=== PATIENT | male | born 1985 | race Caucasian/White ===

== ENCOUNTER 2017-02-13 13:26 | Emergency (ER) | payer BC ==
[~2017-02-13] VITALS: Ht 190.5 cm; Wt 114.7 kg
[2017-02-13 13:38] VITALS: TEMP 36.9; Ht 190.5 cm; Wt 114.7 kg
[2017-02-13] MEDS ORDERED: NICO1DIS7 TD (14:16)
[2017-02-13] MEDS ORDERED: PRED20TA2 PO (14:16)
--- NOTE | 2017-02-13 14:50 | DIAGNOSTIC IMAGING REPORT ---
SINGLE VIEW CHEST CLINICAL HISTORY: Generalized abdominal pain. FINDINGS: 2 AP, portable, upright chest radiographs are obtained. No prior studies are available for comparison at the time of dictation. The examination is degraded by portable technique and patient rotation. The cardiomediastinal silhouette is unremarkable. The lungs and pleural spaces are clear. No pneumothorax is seen. The bony thorax is grossly intact. IMPRESSION: No active disease in the chest. Electronically signed by: Rober Roe M.D. 02/13/2017 2:48 PM Dictated Date/Time: 02/13/2017 2:48 PM
--- NOTE | 2017-02-13 14:55 | EMERGENCY ROOM VISIT NOTE ---
History Report prepared by Rika: Ildefonso Du Under the Supervision of: Dr. Marcellus Hanna M.D. First contact with patient: 14:00 Chief Complaint: NECK PAIN Stated Complaint: NECK PAIN,DIZZINESS,SHOULDER PAIN,STOMACH PAIN History of Present Illness The patient is a 32 year old white male with a past medical history of low platelet counts and knee surgery who presents to the ED with a cc of constant dizziness beginning at 1100. He rates his discomfort as a 4/10 in severity. Positive neck pain, bilateral shoulder pain, abdominal pain. Negative recent falls, travel, tick bites, syncope, nausea, vomiting, gingival bleeding. The patient states that he was recently in the hospital for his symptoms because he thought he had Lyme's disease. He reports that they found he had a platelet count of 3000, which he had a transfusion for in [place]. The patient states that they did a bone marrow biopsy, but he still has not had the results. He states that they diagnosed him with ITP. The patient admits that he is a smoker and his last cigarette was four days ago. Source of History: patient Onset: 1100 Position: other (global) Symptom Intensity: 4/10 Timing: constant Associated Symptoms: + neck pain, + abdominal pain, No LOC, No nausea, No vomiting Review of Systems See HPI for pertinent positives and negatives. A total of ten systems were reviewed and were otherwise negative. Past Medical & Surgical Surgical Problems: (1) H/O knee surgery Family History Patient reports no known family medical history. Social History Smoking Status: Current Every Day Smoker Marital Status: Housing Status: lives with significant other Occupation Status: employed Current/Historical Medications Scheduled Nicotine (Nicotine Step 1), 21 MG TD DAILY Prednisone (Prednisone Tab), 80 MG PO DAILY Allergies Coded Allergies: No Known Allergies (Unverified , 02/13/17) Physical Exam Vital Signs Date Time Temp Pulse Resp B/P (MAP) Pulse Ox O2 Delivery O2 Flow Rate FiO2 02/13/17 16:05 80 20 158/81 100 Room Air 02/13/17 14:41 74 14 159/97 98 Room Air 02/13/17 14:32 77 02/13/17 13:38 36.9 93 18 166/75 98 Room Air Physical Exam GENERAL: Awake, alert, well-appearing, NAD HENT: Normocephalic, atraumatic, no gingival bleeding, no subconjunctival hemorrhage. EYES: Normal conjunctiva. Sclera non-icteric. NECK: Supple. No nuchal rigidity. FROM. RESPIRATORY: CTAB, no rhonchi, wheezing, crackles CARDIAC: RRR, no MRG ABDOMEN: Soft, NTND, BS+ MSK: No chest wall TTP, no LE edema NEURO: CN 2-12 intact, 5/5 upper and lower extremity strength, no dysmetria, no drift, good finger to nose, no sensory deficits. SKIN: Bruising to the right forearm, left upper arm, and bilateral shins. Nonblanching petechiae to the lower extremities. Medical Decision & Procedures ER Provider Diagnostic Interpretation: X-ray: Per my interpretation, radiologist review. SINGLE VIEW CHEST CLINICAL HISTORY: Generalized abdominal pain. FINDINGS: 2 AP, portable, upright chest radiographs are obtained. No prior studies are available for comparison at the time of dictation. The examination is degraded by portable technique and patient rotation. The cardiomediastinal silhouette is unremarkable. The lungs and pleural spaces are clear. No pneumothorax is seen. The bony thorax is grossly intact. IMPRESSION: No active disease in the chest. Electronically signed by: Rober Roe M.D. 02/13/2017 2:48 PM Dictated Date/Time: 02/13/2017 2:48 PM Laboratory Results 02/13/17 14:35 Red Blood Count 4.76, Mean Corpuscular Volume 87.6, Mean Corpuscular Hemoglobin 30.7, Mean Corpuscular Hemoglobin Concent 35.0, Mean Platelet Volume 9.3, Neutrophils (%) (Auto) 74.9, Lymphocytes (%) (Auto) 19.2, Monocytes (%) (Auto) 4.0, Eosinophils (%) (Auto) 0.0, Basophils (%) (Auto) 0.5, Neutrophils # (Auto) 7.06, Lymphocytes # (Auto) 1.81, Monocytes # (Auto) 0.38, Eosinophils # (Auto) 0.00, Basophils # (Auto) 0.05 02/13/17 14:35 Test 02/13/17 14:35 White Blood Count 9.43 K/uL (4.8-10.8) Red Blood Count 4.76 M/uL (4.7-6.1) Hemoglobin 14.6 g/dL (14.0-18.0) Hematocrit 41.7 % (42-52) Mean Corpuscular Volume 87.6 fL (80-100) Mean Corpuscular Hemoglobin 30.7 pg (25-34) Mean Corpuscular Hemoglobin Concent 35.0 g/dl (32-36) Platelet Count 133 K/uL (130-400) Mean Platelet Volume 9.3 fL (7.4-10.4) Neutrophils (%) (Auto) 74.9 % Lymphocytes (%) (Auto) 19.2 % Monocytes (%) (Auto) 4.0 % Eosinophils (%) (Auto) 0.0 % Basophils (%) (Auto) 0.5 % Neutrophils # (Auto) 7.06 K/uL (1.4-6.5) Lymphocytes # (Auto) 1.81 K/uL (1.2-3.4) Monocytes # (Auto) 0.38 K/uL (0.11-0.59) Eosinophils # (Auto) 0.00 K/uL (0-0.5) Basophils # (Auto) 0.05 K/uL (0-0.2) RDW Standard Deviation 39.4 fL (36.4-46.3) RDW Coefficient of Variation 12.3 % (11.5-14.5) Immature Granulocyte % (Auto) 1.4 % Immature Granulocyte # (Auto) 0.13 K/uL (0.00-0.02) Prothrombin Time 10.5 SECONDS (9.0-12.0) Prothromb Time International Ratio 1.0 (0.9-1.1) Activated Partial Thromboplast Time 25.4 SECONDS (21.0-31.0) Partial Thromboplastin Ratio 1.0 Anion Gap 4.0 mmol/L (3-11) Est Creatinine Clear Calc Drug Dose 157.5 ml/min Estimated GFR () 127.1 Estimated GFR (Non- 109.7 BUN/Creatinine Ratio 15.3 (10-20) Calcium Level 8.6 mg/dl (8.5-10.1) Magnesium Level 2.0 mg/dl (1.8-2.4) Total Bilirubin 0.6 mg/dl (0.2-1) Direct Bilirubin 0.1 mg/dl (0-0.2) Aspartate Amino Transf (AST/SGOT) 19 U/L (15-37) Alanine Aminotransferase (ALT/SGPT) 43 U/L (12-78) Alkaline Phosphatase 59 U/L (45-117) Total Protein 8.5 gm/dl (6.4-8.2) Albumin 3.5 gm/dl (3.4-5.0) Lipase 235 U/L (73-393) Laboratory results reviewed by me ECG Indication: other (dizziness) Rate (beats per minute): 71 Rhythm: normal sinus Findings: other (Normal intervals and axis. No other ST or TWI changes) ED Course 1410: The patient was evaluated in room A04B. A complete history and physical exam was performed. 1608: I reevaluated the patient. Discussed results and discharge instructions: He verbalized understanding and agreement. The patient is ready for discharge. Medical Decision Triage Nursing notes reviewed. The patient is a 32 year old white male with a past medical history of low platelet counts and knee surgery who presents to the ED with a cc of constant dizziness beginning at 1100. The patient's presentation and history were concerning for etiologies such as benign positional vertigo, dehydration, hypovolemia, anemia, tumor, infection, hypoglycemia, electrolyte abnormalities, cardiac sources, intracerebral event, toxicologic, neurologic, as well as others were entertained. Patient was seen and evaluated the bedside. Patient is have a recent history of diagnosed ITP. This was done while on work in [place]. Patient did complain of some mild dizziness and lightheadedness. Patient has noted some mild bruising but this was all old and during his most recent hospital stay in [place]. Patient does have some noted petechiae to the lower extremities however again he states this is chronic. Patient stated that he had a peptic count of 3000. Patient did undergo infusion of platelets as well as steroids. Patient still and prednisone. Patient denies any recent falls, headaches, fevers, chills. Patient has a normal neurologic exam. Patient did have blood work that was completed. Patient's blood work fairly unremarkable. Patient had normal coagulation studies, hemoglobin, platelets. Patient did complain of some mild headache but he had a normal neurologic exam. No further imaging was obtained given the patient was not thrombocytopenia. I did have case management come and speak with the patient in order to help him obtain a follow-up appointment with her PCP as well as hematology given his newly diagnosed ITP. Patient told to continue to take his medications as prescribed. Patient was agreeable with this plan of care patient was giving return precautions and warning signs to watch for. Patient was deemed suitable for outpatient follow-up and discharge. Patient was given strict follow-up, discharge, and return precautions. All questions were answered. Patient was deemed suitable for outpatient follow-up at this time. Patient agreed with the plan of care and was safely discharged home. Medication Reconcilliation Current Medication List: was personally reviewed by me Blood Pressure Screening Patient's blood pressure: Elevated blood pressure Blood pressure disposition: Elevated BP felt to be situational Impression Primary Impression: Dizziness Additional Impressions: Headache Weakness Scribe Attestation The scribe's documentation has been prepared under my direction and personally reviewed by me in its entirety. I confirm that the note above accurately reflects all work, treatment, procedures, and medical decision making performed by me. Departure Information Dispostion Home / Self-Care Referrals No Doctor, Assigned (PCP) Patient Instructions Headache Pain, My [facility] [place] [employer] Additional Instructions Please return to the emergency department if you have worsening or recurrent symptoms not amenable to at-home treatment. Please call for a follow-up appointment with her primary care physician. Please take your medications as prescribed. If you have other concerns and/or complaints please feel free to also call your primary care physician's office or return the ED for further evaluation, management, and treatment. Please follow up with hematology. If you have any gingival bleeding, easy bruising, or spontaneous bleeding please return. If you have PECK w/ weakness, difficulty speaking, or numbness, please return to the ER. Take your medications as prescribed. You have been examined and treated today on an emergency basis only. This is not a substitute for, or an effort to provide, complete comprehensive medical care. It is impossible to recognize and treat all injuries or illnesses in a single emergency department visit. It is therefore important that you follow up closely with [facility], your PCP, and/or your specialist(s). Call as soon as possible for an appointment. Thank you for your time and consideration. I look forward to speaking with you again soon. Please don't hesitate to call us if you have any questions. Problem Qualifiers Additional Impressions: Headache Headache type: unspecified Headache chronicity pattern: acute headache Intractability: not intractable Qualified Codes: R51 - Headache
[2017-02-13 15:04] LABS: BASO % 0.5 %; BASO ABS # 0.05 K/uL (0-0.2); COMPLETE YES; HEMATOCRIT 41.7 % (42-52); IG% 1.4 %; LYMPH % 19.2 %; LYMPH ABS # 1.81 K/uL (1.2-3.4); MEAN CELL VOLUME 87.6 fL (80-100); MEAN CORPUSCULAR HEMOGLOBIN 30.7 pg (25-34); MEAN PLATELET VOLUME 9.3 fL (7.4-10.4); NEUT % 74.9 %; PLATELET COUNT 133 K/uL (130-400); RED BLOOD COUNT 4.76 M/uL (4.7-6.1); WHITE BLOOD COUNT 9.43 K/uL (4.8-10.8)
[2017-02-13 15:16] LABS: PROTHROMBIN TIME (PATIENT) 10.5 SECONDS (9.0-12.0)
[2017-02-13 15:25] LABS: BUN/CREATININE RATIO 15.3 (10-20); CALCIUM 8.6 mg/dl (8.5-10.1); CREATININE 0.92 mg/dl (0.60-1.40); POTASSIUM 3.8 mmol/L (3.5-5.1)
[2017-02-13 16:05] VITALS: BP 158/81; PULSE 80; O2SAT 100
== END 2017-02-13 16:16 | disposition home or self-care (01) ==
LOC: C.EDB 13:29 → C.EDA 16:16
DX: R42 Dizziness and giddiness (principal); R53.1 Weakness; R51 Headache; F17.200 Nicotine dependence, unspecified, uncomplicated; D69.6 Thrombocytopenia, unspecified; Z79.52 Long term (current) use of systemic steroids

== ENCOUNTER 2019-03-13 05:53 | Inpatient (IN) ==
--- NOTE | 2019-02-26 12:22 | PAT Medication Instructions ---
Medication Instructions Date of Service February 26, 2019 Home Medications pseudoephedrine HCl [Sudafed] 0 mg PO UD PRN cetirizine 10 mg tablet 10 mg PO DAILY PRN fluticasone propionate 50 mcg/actuation nasal spray,suspension 2 sprays INTNAS DAILY PRN ibuprofen 800 mg PO DAILY PRN turmeric root extract 1,000 mg PO QAM ASK your surgeon for instructions ibuprofen 800 mg PO DAILY PRN STOP taking 2 weeks before surgery (or as soon as possible if surgery is within 2 weeks) turmeric root extract 1,000 mg PO QAM DO NOT take the morning of surgery pseudoephedrine HCl [Sudafed] 0 mg PO UD PRN cetirizine 10 mg tablet 10 mg PO DAILY PRN Take morning of surgery With a small sip of water, OTHERWISE NOTHING TO EAT OR DRINK AFTER MIDNIGHT: fluticasone propionate 50 mcg/actuation nasal spray,suspension 2 sprays INTNAS DAILY PRN (if needed) Take evening before surgery pseudoephedrine HCl [Sudafed] 0 mg PO UD PRN (if needed) cetirizine 10 mg tablet 10 mg PO DAILY PRN (if needed) fluticasone propionate 50 mcg/actuation nasal spray,suspension 2 sprays INTNAS DAILY PRN (if needed) Other Notes If you have any questions please call us at [phone] or [phone] or [phone] or [phone]
--- NOTE | 2019-02-27 11:00 | Anesthesiology Consultation ---
Date of Service February 27, 2019 Assessment & Plan (1) Encounter for pre-operative examination: Hx ITP: follows with hematology (Dr. Petit/[facility]). Last seen: 07/17/18: remotely treated with IVIG/prednisone. No evidence of recurrence of ITP noted. F/U 9 months recommended. [Platelets WNL on preop labs 02/27/19] Chart Review Chart Review: Acceptable Risk for Surgery and Patient seen in Pre Admission Testing Teaching & Discussion Pre-Anesthesia Teaching/Discussion Notes: Instructed NPO after midnight before surgery,except medications with 15 cc of water. Medication instructions pr ovided according to the PAT guidelines. History Surgery Operation Date: 03/13/19 10:25 Proposed Procedures p C5-C7 Anterior Cervical Discectomy and Fusion with Spinal Cord Monitoring - Willi Dacosta DO Height/Weight Height: 6 ft 4 in Weight: 119.2 kg Allergies Allergy/AdvReac Type Severity Reaction Status Date / Time amoxicillin Allergy Unknown THROAT Verified 02/21/19 11:16 STARTED SWELLING Medications Home Medications Medication Instructions Recorded Confirmed Last Taken pseudoephedrine HCl [Sudafed] 0 mg PO UD PRN 04/16/18 02/21/19 Unknown cetirizine 10 mg tablet 10 mg PO DAILY PRN 12/08/18 02/21/19 Unknown fluticasone propionate 50 2 sprays INTNAS DAILY PRN 12/08/18 02/21/19 Unknown mcg/actuation nasal spray,suspension ibuprofen 800 mg PO DAILY PRN 02/21/19 02/21/19 Unknown turmeric root extract 1,000 mg PO QAM 02/21/19 02/21/19 Unknown Past Medical History Medical History History of ITP no issues x 1+ years/follows with hematology (Dr. Petit/[facility]) Obesity Exercise / Class Metabolic Activity II 4-5 Yardwork/Stairs/Walk up hill Past Family History Family History Father Family history of diabetes mellitus Past Surgical History Surgical History H/O knee surgery patient unsure what side History of esophagogastroduodenoscopy (EGD) Past Anesthesia History No Hx of Anesthesia Complications and No Family Hx of Anesthesia Complications History of PONV No Hx of PONV and No Hx of Motion Sickness STOP BANG Total 1 Social History Smoking Status: Light tobacco smoker tobacco type: cigarettes and smokeless tobacco Smoking cigarettes per day: 2 PACKS CIGS A WEEK Do You Dip or Chew Tobacco: Yes (2 CANS A WEEK- ADVISED NPO AM DOS ) Hx Alcohol Use: Yes Alcohol type: beer alcohol intake frequency: a few times a month Hx Substance Use: No Review of Systems Patient denies chest pain, shortness of breath, dyspnea on exertion, reflux, cough, wheezing, palpitations. Physical Exam Vital Signs VITALS BP 121/84 P 85 TEMP 97.8 SP02 98%RA RESP 18 PHYSICAL Mildly decreased cervical extension 2/2 cervicalgia. Full TMJ range of motion. TMD 3 finger breaths Mallampati Score 2 Dentition: intact Lungs: clear throughout to auscultation Cardiac: regular rate and rhythm, no murmurs noted Spine: normal Carotid arteries: negative bruit Extremities: no edema + cox- advised to trim/patient seems agreeable Testing Laboratory Results 02/27/19 10:56 02/27/19 10:56 PT 10.0 Seconds (9.0-12.0) 02/27/19 10:56 INR 1.0 (0.9-1.1) 02/27/19 10:56 APTT 26.4 Seconds (21.0-31.0) 02/27/19 10:56 Urine Color Yellow 02/27/19 Unknown Urine Appearance Clear (Clear) 02/27/19 Unknown Urine pH 6.5 (4.5-7.5) 02/27/19 Unknown Ur Specific [place] 1.011 (1.000-1.030) 02/27/19 Unknown Urine Protein Negative (Negative) 02/27/19 Unknown Urine Glucose (UA) Negative (Negative) 02/27/19 Unknown Urine Ketones Negative (Negative) 02/27/19 Unknown Urine Nitrite Negative (Negative) 02/27/19 Unknown Ur Leukocyte Esterase Negative (Negative) 02/27/19 Unknown Blood Type A Positive 02/27/19 10:56 Antibody Screen NEGATIVE 02/27/19 10:56 Electrocardiogram Date: 01/03/19 Findings: + NSR @ (66) Chest X-Ray Date: 01/03/19 Findings: + NAD Stress Test Date: 10/23/19 Type: exercise Normal exercise stress ECHO. No ECHO or EKG evidence of myocardial ischemia. 86% MPHR. 10.10 METS. EF 55-60%. No RWMA. No significant valvular disease. Cervical Spine Date: 04/16/18 The cervical spine is visualized from C1 through the superior endplate of T1. There is no fracture. No subluxation. Mild degenerative disc change C5-C7 Prevertebral soft tissues and the atlantodens interval are intact. No fracture or subluxation within the cervical spine. Mild degenerative disc change C5-C7
[2019-02-27 11:33] LABS: Basophils # (auto) 0.03 K/uL (0-0.2); Basophils % (auto) 0.3 %; Eosinophils # (auto) 0.65 K/uL (0-0.5); Eosinophils % (auto) 6.9 %; Hematocrit (blood only) 46.4 % (42-52); Hemoglobin 15.9 g/dL (14.0-18.0); Immature Granulocytes # (auto) 0.03 K/uL (0.00-0.02); Immature Granulocytes % (auto) 0.3 %; Lymphocytes # (auto) 3.01 K/uL (1.2-3.4); Lymphocytes % (auto) 31.9 %; Mean Corpuscular Hemoglobin 30.9 pg (25-34); Mean Corpuscular Hgb Conc 34.3 g/dL (32-36); Mean Corpuscular Volume 90.3 fL (80-100); Mean Platelet Volume 9.4 fL (7.4-10.4); Monocytes # (auto) 0.97 K/uL (0.11-0.59); Monocytes % (auto) 10.3 %; Neutrophils # (auto) 4.76 K/uL (1.4-6.5); Neutrophils % (auto) 50.3 %; Platelet Count 215 K/uL (130-400); RDW Coefficient of Variation 11.9 % (11.5-14.5); RDW Standard Deviation 39.6 fL (36.4-46.3); Red Blood Count 5.14 M/uL (4.7-6.1); White Blood Count 9.45 K/uL (4.8-10.8)
[2019-02-27 11:45] LABS: BUN Creatinine Ratio 16.2 (10-20); Calcium 8.5 mg/dl (8.5-10.1); Creatinine Clr Calc Pharmacy 159.6 ml/min; Est GFR (African American) 125.3; Est GFR (Non-African American) 108.1; Potassium 4.1 mmol/L (3.5-5.1)
[2019-02-27 11:48] LABS: Partial Thromboplastin Time 26.4 Seconds (21.0-31.0)
[2019-02-27 11:50] LABS: Appearance Urine Clear (Clear); Bilirubin Urine Negative (Negative); Blood Urine Negative (Negative); Color Urine Yellow; Glucose Urine UA Negative (Negative); Ketones Urine Negative (Negative); Leukocyte Esterase Urine Negative (Negative); Nitrite Urine Negative (Negative); Protein Urine Negative (Negative); Specific Gravity Urine 1.011 (1.000-1.030); Urobilinogen Urine Negative (Negative); pH Urine 6.5 (4.5-7.5)
[2019-03-13] MEDS ORDERED: LR 15ML/HR IV SCH (06:00)
[2019-03-13] MEDS ORDERED: GABAPENTIN 900 MG DOSE PO SCH (06:00)
[2019-03-13] MEDS ORDERED: CeleBREX 200 MG CAP PO SCH (06:00)
[2019-03-13] MEDS ORDERED: CLINDAMYCIN 600 MG/54 ML BAG IV SCH (06:00)
[2019-03-13] MEDS ORDERED: ACETAMINOPHEN 500 MG TAB PO SCH (06:00)
[2019-03-13] MEDS ORDERED: HYDROmorphone INJ 2 MG/ML SYR/VIAL ONE ×2 (06:29→09:00)
[2019-03-13] MEDS ORDERED: fentaNYL citrate 100 MCG/2 ML VIAL ONE ×5 (06:29→09:41)
[2019-03-13] MEDS ORDERED: MIDAZOLAM HCL 1 MG/ML 2ML VIAL ONE (06:29)
[2019-03-13] MEDS ORDERED: PROPOFOL IV EMULSION 10 MG/ML 100 ML VIAL IV ONE (06:46)
[2019-03-13] MEDS ORDERED: BACITRACIN INJ 50,000 UNIT VIAL ONE (06:58)
--- NOTE | 2019-03-13 07:23 | History & Physical Bridge Note ---
Date of Service March 13, 2019 History & Physical Bridge Note I have examined the patient, reviewed the History & Physical and in the interval since the performance of the History & Physical I have noted the following changes of clinical significance: no changes noted
--- NOTE | 2019-03-13 07:24 | History & Physical Report ---
Date of Service March 13, 2019 Assessment & Plan (1) Cervical stenosis of spinal canal: C5-C7 anterior cervical discectomy and fusion Present on Admission?: Yes History of Present Illness Chief Complaint: Neck and arm pain Primary Care Provider: Micheal Sosa MD This is a 34-year-old male presents with chronic persistent neck and arm pain. After failing extensive course of nonoperative care is here for surgical intervention. Allergies Allergy/AdvReac Type Severity Reaction Status Date / Time amoxicillin Allergy Severe THROAT Verified 03/13/19 06:10 STARTED SWELLING Home Medications Home Medications Medication Instructions Recorded Confirmed Type pseudoephedrine HCl [Sudafed] 0 mg PO UD PRN 04/16/18 03/13/19 History cetirizine 10 mg tablet 10 mg PO DAILY PRN 12/08/18 03/13/19 History fluticasone propionate 50 2 sprays INTNAS DAILY PRN 12/08/18 03/13/19 History mcg/actuation nasal spray,suspension ibuprofen 800 mg PO DAILY PRN 02/21/19 03/13/19 History turmeric root extract 1,000 mg PO QAM 02/21/19 03/13/19 History Past Med/Surg History Medical History (Updated 03/13/19 @ 07:24 by Willi Dacosta DO) History of ITP no issues x 1+ years/follows with hematology (Dr. Petit/[facility]) Obesity Surgical History (Updated 03/13/19 @ 06:10 by Nahomy Bennett RN) H/O knee surgery patient unsure what side History of esophagogastroduodenoscopy (EGD) History of wisdom tooth extraction (Acute) Family History Father Family history of diabetes mellitus Social History Preferred Language: Trinidadian Communication Ability: Effective Requisition Approver Required: No Beliefs That Will Affect Care: None Current Living Situation: Significant Other Other Information That Helps Us Care for You: No Feels Safe at Home: Yes Safety Concerns: Feels Safe At This Time Smoking Status: Light tobacco smoker Tobacco Type: cigarettes and smokeless tobacco ; Cigarettes Per Day: 2 PACKS CIGS A WEEK ; Do You Dip or Chew Tobacco: Yes (2 CANS A WEEK- ADVISED NPO AM DOS ) ; Second Hand Exposure: No ; Hx Alcohol Use: Yes Alcohol type: beer Hx Substance Use: No Physical Exam Physical Exam: Patient is alert and oriented neurologically intact. Results & Data Vital Signs (Past 12 Hours) Vital Signs Temp Pulse Resp BP Pulse Ox 03/13/19 06:13 36.5 C 72 20 140/89 97
[2019-03-13] MEDS ORDERED: ePHEDrine sulfate 50 MG/ML AMP IV PRN (07:38)
[2019-03-13] MEDS ORDERED: ATROPINE SULFATE 0.1 MG/ML 10ML SYR IV PRN (07:38)
[2019-03-13] MEDS ORDERED: PROMETHAZINE HCL 6.25 MG in SODIUM CHLORIDE 0.9% 50 ML IV PRN (07:38)
[2019-03-13] MEDS ORDERED: HYDROmorphone INJ 2 MG/ML SYR/VIAL IV PRN (07:38)
[2019-03-13] MEDS ORDERED: ONDANSETRON INJ 2 MG/ML 2 ML VIAL IV PRN ×2 (07:38→10:57)
[2019-03-13] MEDS ORDERED: ONDANSETRON INJ 2 MG/ML 2 ML VIAL ONE (09:04)
[2019-03-13] MEDS ORDERED: PHENYLEPHRINE HCL 10 MG/ML VIAL ONE (09:04)
[2019-03-13] MEDS ORDERED: PHENYLEPHRINE 100MCG/ML 5ML SYR ONE (09:04)
[2019-03-13] MEDS ORDERED: raNITIdine HCl 25 MG/ML VIAL IV ONE (09:04)
[2019-03-13] MEDS ORDERED: PROPOFOL IV EMULSION 10 MG/ML 20 ML VIAL IV ONE (09:04)
[2019-03-13] MEDS ORDERED: LIDOCAINE HCL 2% 2 ML VIAL/AMP(20MG/ML) INFIL ONE (09:04)
[2019-03-13] MEDS ORDERED: METOCLOPRAMIDE HCL INJ 5 MG/ML 2 ML VIAL ONE (09:04)
[2019-03-13] MEDS ORDERED: FLOSEAL HEMOSTATIC MATRIX 10ML TOP ONE (09:04)
[2019-03-13] MEDS ORDERED: ROCURONIUM BROMIDE 10 MG/ML 5 ML VIAL ONE (09:04)
[2019-03-13] MEDS ORDERED: GLYCOPYRROLATE 0.2 MG/ML VIAL ONE (09:04)
[2019-03-13] MEDS ORDERED: NEOSTIGMINE METHYLSULFATE 1 MG/ML 10ML VIAL ONE (09:04)
[2019-03-13] MEDS ORDERED: DEXAMETHASONE SOD INJ 4 MG/ML VIAL ONE (09:04)
--- NOTE | 2019-03-13 09:19 | Operative Report ---
Post Operative Report Pre & Post Diagnosis Operation Date: 03/13/19 07:45 Pre-Op Diagnosis: Cervical spinal stenosis with radiculopathy Post-Op Diagnosis: Same I identified the patient and participated in the time-out.: Yes Procedure Operation Date: 03/13/19 07:45 Actual Procedures #1 anterior cervical discectomy with bilateral foraminotomies C5-6 C6-7. #2 anterior cervical arthrodesis C5-6 C6-7. #3 placement of Spira 8 mm cage filled with DBM at C5-6 and 9 mm at C6-7. #4 placement of 5 complete screws across C5- 6 C6-7. Surgeon Willi Dacosta, DO Informaticist None Estimated Blood Loss 20 Findings Consistent with Post-Op Diagnosis Specimens None Indications This is a 34-year-old male who presents above-mentioned diagnosis after failing extensive course of nonoperative care is here for surgical invention. Description of Procedure Patient was met with identified informed consent obtained. Patient was then taken to the operative suite underwent an patient placed in supine position check stable head Santana head inspector and center marker. All bony prominences well-padded eyes inspected to ensure no external pressure placed upon. This point the anterior cervical spine was prepped and draped in a sterile fashion. The assistance of fluoroscopy identified the see 6 vertebral body and a transverse incision was placed along the right anterior aspect of the cervical spine overlying his region. Sharp dissection with assistance of bipolar electrocautery performed down to and exposing the anterior cervical spine from C5-C7. Self-retaining tractor was placed. Then performed a complete discectomy of C5-6 up to the uncovertebral joints bilaterally including removal of all posterior annular fibers longitudinal ligament bilateral foraminotomies. Endplates then burred to subcortical bleeding bone and a 8 mm spiral cage filled with DBM tapped in position. I did use [place] distracting pins to assist in visualization. These were removed and we approached the see 6 7 level. Again complete discectomy performed out to the uncovertebral bilaterally. [place] distracting pins again utilized. Removed all posterior annular fibers longitudinal and bilateral foraminotomies performed addressing significant stenosis. Endplates produce subcortical bleeding bone and a 9 mm spiral cage filled with DBM tapped in position. Distraction apparatus was removed all anterior osteophytes burred to a smooth cortical surface and a santos plate and screws applied with the assistance of fluoroscopy. The incision was then copiously irrigated explored to ensure no damage to surrounding structures remaining bleeding. A 10 round STANISLAW drain inserted. Incision was then closed with 2 Vicryl in the fashion of 4 Monocryl for final skin closure. Steri-Strip sterile dressings placed. Patient will continue PACU stable disc. Please note spinal cord monitoring was utilized that the procedure no changes noted. I attest to the content of the Intraoperative Record and any orders documented therein. Any exceptions are noted below.
[2019-03-13] MEDS: fentaNYL citrate 100 MCG/2 ML VIAL IV PRN ×4 (09:35→10:10)
--- NOTE | 2019-03-13 09:49 | Fluoroscopy Report ---
FL cervical 2-3V CLINICAL HISTORY: ACDF C5-C7 COMPARISON STUDY: None. FLUOROSCOPY TIME: 12 seconds. FINDINGS: 2 fluoroscopic spot images of the cervical spine demonstrate anterior cervical discectomy a nd fusion from C5 through C7. The hardware appears intact. IMPRESSION: Fluoroscopy provided for C5-C7 ACDF. ACT 112: Negative or not required by law. Electronically signed by: Shailesh Mosley M.D. 03/13/2019 9:48 AM
--- NOTE | 2019-03-13 10:43 | Anesthesiology Progress Note ---
Date of Service March 13, 2019 Anesthesia Post Procedure Vital Signs Vital Signs: Temp Pulse Resp BP Pulse Ox 03/13/19 10:35 36.9 C 72 16 122/76 99 03/13/19 10:25 82 16 144/85 H 100 03/13/19 10:15 36.9 C 83 16 131/87 97 03/13/19 10:05 63 16 131/87 95 03/13/19 09:55 85 16 141/84 H 95 03/13/19 09:45 76 16 143/92 H 100 03/13/19 09:35 79 16 139/95 100 03/13/19 09:27 35.8 C L 87 16 160/88 H 100 03/13/19 06:13 36.5 C 72 20 140/89 97 Pain Intensity Neck: Pain Intensity: 7 Transfer of Care Handoff Completed per policy Notes Mental Status: alert / awake / arousable Patient Amnestic to Procedure: Yes Nausea / Vomiting: adequately controlled Pain: adequately controlled Airway Patency, RR, SpO2: stable & adequate BP & HR: stable & adequate Hydration State: stable & adequate Anesthetic Complications: no major complications apparent
[2019-03-13] MEDS ORDERED: NALOXONE HCL 0.4 MG/1 ML VIAL/CARP IV PRN (10:57)
[2019-03-13] MEDS ORDERED: FAMOTIDINE 20 MG TAB PO PRN (10:57)
[2019-03-13] MEDS ORDERED: ONDANSETRON 4 MG OD TAB PO PRN (10:57)
[2019-03-13] MEDS ORDERED: PROMETHAZINE HCL 12.5 MG in SODIUM CHLORIDE 0.9% 50 ML IV PRN (10:57)
[2019-03-13] MEDS ORDERED: ACETAMINOPHEN 500 MG TAB PO PRN (10:57)
[2019-03-13] MEDS ORDERED: LORazepam 0.5 MG TAB PO PRN (10:57)
[2019-03-13] MEDS ORDERED: IBUPROFEN 800 MG TAB PO PRN (10:57)
[2019-03-13] MEDS ORDERED: LORazepam 0.5 MG/1 ML VIAL IV PRN (10:57)
[2019-03-13] MEDS ORDERED: CETIRIZINE HCL 10 MG TABLET PO PRN (10:57)
[2019-03-13] MEDS ORDERED: HYDROmorphone INJ 1 MG/ML SYRINGE IV PRN (10:57)
[2019-03-13] MEDS ORDERED: SOD PHOSPHATE/SOD BIPHOSPHATE ENEMA 132 ML BTL PR PRN (10:57)
[2019-03-13] MEDS ORDERED: RACEPINEPHRINE 2.25% NEBU SOLN 0.5 ML VIAL INH PRN (10:57)
[2019-03-13] MEDS ORDERED: MAGNESIUM HYDROXIDE SUSP 30 ML UDC PO PRN (10:57)
[2019-03-13] MEDS ORDERED: DO NOT ADMINISTER FLU VACCINE PRN (10:57)
[2019-03-13] MEDS ORDERED: DO NOT ADMINISTER PNEUMOCOCCAL VACCINE PRN (10:57)
[2019-03-13] MEDS ORDERED: ALUMINUM/MAGNESIUM SUSP 30 ML UDC PO PRN (10:57)
[2019-03-13] MEDS ORDERED: DEXAMETHASONE SOD PHOSPHATE 8 MG in SYRINGE 0 ML IV PRN (10:57)
[2019-03-13] MEDS ORDERED: METOCLOPRAMIDE HCL INJ 5 MG/ML 2 ML VIAL IV PRN (10:57)
[2019-03-13] MEDS ORDERED: ACETAMINOPHEN 1,000 MG/100 ML VIAL IV PRN (10:57)
[2019-03-13] MEDS ORDERED: LARYING-O-JET KIT (LTA) ONE (11:37)
[2019-03-13] MEDS: LACTATED RINGER'S 1,000 ML IV SCH ×2 (11:49→19:59)
[2019-03-13] MEDS: OXYCODONE HCL IR 5 MG TAB (IMMEDIATE RELEASE) PO PRN ×3 (13:30→22:10)
[2019-03-13] MEDS: CLINDAMYCIN 600 MG in DEXTROSE 5% 50 ML IV SCH (15:39)
[2019-03-13] MEDS: HYDROmorphone INJ 0.5 MG/0.5 ML SYR IV PRN (15:43)
[2019-03-13] MEDS: NICOTINE 14 MG/24 HR PATCH TD SCH (18:50)
[2019-03-13] MEDS: TRAMADOL HCL 50 MG TABLET PO PRN (19:28)
[2019-03-13] MEDS ORDERED: DOCUSATE SODIUM/SENNA 50/8.6MG TAB PO SCH (21:00)
[2019-03-14] MEDS: CLINDAMYCIN 600 MG in DEXTROSE 5% 50 ML IV SCH (00:08)
[2019-03-14] MEDS: TRAMADOL HCL 50 MG TABLET PO PRN ×3 (00:08→09:07)
[2019-03-14] MEDS: OXYCODONE HCL IR 5 MG TAB (IMMEDIATE RELEASE) PO PRN ×3 (02:20→10:56)
[2019-03-14] MEDS: HYDROmorphone INJ 0.5 MG/0.5 ML SYR IV PRN (05:00)
[2019-03-14] MEDS: NICOTINE 14 MG/24 HR PATCH TD SCH (09:00)
[2019-03-14] MEDS ORDERED: POLYETHYLENE (MIRALAX) 17 GM PACK PO SCH (09:20)
--- NOTE | 2019-03-14 10:47 | Discharge Summary ---
Date of Service March 14, 2019 Admission HPI Per Admitting Provider This is a 34-year-old male presents with chronic persistent neck and arm pain. After failing extensive course of nonoperative care is here for surgical intervention. Principal Diagnosis Cervical spinal stenosis with radiculopathy Discharge Data Allergies Allergy/AdvReac Type Severity Reaction Status Date / Time amoxicillin Allergy Severe THROAT Verified 03/13/19 06:10 STARTED SWELLING Procedures Performed Operation Date: 03/13/19 07:45 Actual Procedures p C5-C7 Anterior Cervical Discectomy and Fusion with Spinal Cord Monitoring(Not Applicable) - Willi Dacosta DO Ordered Studies 03/13/19 07:45 FL cervical 2-3V Routine FL fluoroscopy <1hr Routine Hospital Course (1) Cervical stenosis of spinal canal: Patient went anterior cervical discectomy fusion tolerated well taken orthopedic for postoperative. Postop day 1 arm symptoms are improved. Swallowing well. No hoarseness. Excellent strength testing. STANISLAW drain decreasing appropriately. Subsequently discharged home. Discharge orders and instructions from the chart for further review. Total Time Total Time Spent Total Time Spent (In Minutes): 20 minutes Discharge Plan Discharge Items Patient Disposition: Home - Self-Care Reason For Visit: Spinal Stenosis, Cervical Region Discharge Diagnosis: Cervical spinal stenosis with radiculopathy Activity: Per Instructions section Non-emergency contact: Primary Care Provider Call non-emergency contact if: you have any medication questions Follow-up/Referrals: Micheal Sosa MD [Primary Care Provider] - Diet: Regular Addtl Attending Provider Instructions: ACTIVITY RECOMMENDATIONS: SELF CARE INSTRUCTIONS AFTER CERVICAL FUSIONS 1. No smoking. Smoking drastically decreases the chance of a solid fusion. 2. No bending, lifting more than 5 pounds, or twisting (roll like a log when turning in bed). 3. You may shower 3 days after surgery. Thoroughly dry wound. Do not soak in the tub. 4. Cervical collar: Must be worn at all times including sleeping. You may remove the brace only to bath, eat and if you are sitting in a recliner. 5. Please walk as much as you can for exercise. Gradually increase the distance that you walk as your endurance increases. SPECIAL CARE INSTRUCTIONS: VERY IMPORTANT TO READ AND REVIEW A. Do not take any anti-inflammatory medications (i.e. Indocin, Advil, Aspirin, Naprosyn, Aleve, Motrin, etc.) as these may inhibit the chance of a solid fusion. Tylenol is okay to take. B. Your surgical incision has been closed with a cosmetic suture under the skin that will dissolve in about 6 weeks. In 14 days, you can use a pair of clean scissors and cut the suture that is left outside of the skin at the ends of your incision. C. Complications are uncommon, but please contact us if you have any signs or symptoms of: 1. wound infection (fever higher than 102.5 degrees F, redness, separation of wound, drainage, or increasing pain from the incision) 2. blood clots in legs (pain, swelling, redness and warmth in legs) 3. urinary tract infection (fever higher than 102.5 degrees, burning upon urination or increased frequency of urination) 4. nerve problems (inability to walk on your toes or heels, numbness, loss of bowel or bladder control) 5. any other symptoms that concern you. D. Please call the office at if you have any concerns or questions about your operation or recovery. MANAGING PAIN AFTER SPINAL SURGERY 1. Narcotic medication is intended for short-term use and will be provided for surgical pain. Surgical pain usually lasts for a period of 4-6 weeks. Narcotic medication includes Percocet, Vicodin, Darvocet, Tylenol #3 or Lortab. 2. Longer-term pain is more appropriately treated with non-narcotic medication such as Tylenol ES. 3. Muscle spasm is not appropriately treated with narcotics. Muscle relaxers such as Soma, Flexeril or Skelaxin can be used along with Tylenol ES. 4. Remember that we all live with some "aches and pains". This is not unusual or uncommon after an injury or as we get older. 5. We will provide appropriate medication within the normal guidelines of their prescribed use. We will also be very cautious and aware of potential abuse and extended duration of patients' medication needs. 6. Please allow 2-3 days to process refills. Prescriptions will not be mailed but must be picked up at the office. FOLLOW UP VISIT: Keep your scheduled follow-up appointment. Any questions, please call the office at . Pending Studies at Discharge: No Stand-Alone Forms: My [employer], Smoking Cessation Medications and DC Order Prescriptions: New tramadol 50 mg tablet 50 mg PO Q6H PRN (Reason: pain, moderate) Qty: 15 RF: 0 oxycodone 5 mg tablet 5 mg PO Q6H PRN (Reason: pain, severe) Qty: 15 RF: 0 Continued cetirizine [Zyrtec] 10 mg tablet 10 mg PO DAILY PRN (Reason: Allergy Symptoms) RF: 0 fluticasone propionate 50 mcg/actuation spray,suspension 2 sprays INTNAS DAILY PRN (Reason: Allergy Symptoms) RF: 0 turmeric root extract 500 mg Capsule 1,000 mg PO QAM RF: 0 pseudoephedrine HCl [Sudafed] 30 mg Tablet 0 mg PO UD PRN (Reason: Congestion) RF: 0 Discontinued ibuprofen 200 mg Tablet 800 mg PO DAILY PRN (Reason: Pain) RF: 0 Discharge Orders: Discharge Order (Routine); Ordered 03/14/19 Ordered By: Willi Dacosta Admission Data Admit Date/Time: 03/13/19 09:48 Attending Provider: Willi Dacosta Admit Provider: Willi Dacosta Primary Care Provider: Micheal Sosa
[2019-03-15] MEDS ORDERED: bisacodyL 10 MG SUPP PR PRN (09:20)
== END 2019-03-14 11:57 | disposition home or self-care (01) | DRG 473 ==
LOC: 3E 05:53 → ASU 05:53 → OBSVTOIN 09:48